=== PATIENT | female | born 1945 | race Caucasian/White ===

== ENCOUNTER 2020-12-19 07:54 | Outpatient (REF) | payer MEDICARE, OTHER, SELFPAY ==
[2020-12-19 11:16] LABS: Glucose Urine UA NEG (NEG); Leukocyte Esterase Urine 1+ (NEG); Nitrite Urine NEG (NEG); Specific Gravity - Urine 1.015 (1.005-1.025); Urine Blood NEG (NEG); Urine Ketones NEG (NEG); Urine Protein NEG (NEG-TRACE)
[2020-12-19 11:18] LABS: Appearance Urine HAZY; Color Urine YELLOW
[2020-12-19 11:32] LABS: Hematocrit 42.3 % (37-47); Mean Corpuscular HGB Conc 33.1 g/dl (31.0-35.0); Mean Corpuscular Hemoglobin 31.7 pg (27.0-33.0); Mean Corpuscular Volume 95.7 fL (80-98); Mean Platelet Volume 11.3 fL (9.4-12.3); Platelet Count 248 X10*3/uL (160-400); Red Blood Count 4.42 X10*6/uL (4.20-5.50); Red Cell Distribution Width 12.8 % (11.0-16.0); White Blood Count 8.5 X10*3/uL (4.8-10.8)
[2020-12-19 11:33] LABS: Bacteria Urine 1+ /LPF; Mucus Urine 1+ /LPF; RBC Urine 0 /HPF (0); Squamous Epithelial Cell Urine 1+ /LPF; WBC Urine 30-49 /HPF (0-4)
[2020-12-19 12:23] LABS: Alanine Aminotransferase 16 U/L (0-31); Albumin Level 4.3 g/dL (3.5-5.0); Alkaline Phosphatase 72 U/L (39-117); Anion Gap 17 (12-20); Aspartate Amino Transferase 23 U/L (5-31); Bilirubin Total 0.9 mg/dL (0.0-1.0); Blood Urea Nitrogen 15 mg/dL (9-16); Calcium 9.2 mg/dL (8.4-10.2); Carbon Dioxide 28 mmol/L (22-29); Chloride 100 mmol/L (96-108); Cholesterol 154 mg/dL; Estimated Glomerular Filt Rate > 60; Glucose Fasting 107 mg/dL (60-99); HDL Cholesterol 61 mg/dL; LDL Cholesterol Calculated 76 mg/dl; Potassium 3.2 mmol/L (3.3-5.1); Sodium 142 mmol/L (135-145); Total Protein 6.9 g/dL (6.5-8.0); Triglycerides 86 mg/dL
== END 2020-12-19 07:55 | disposition home or self-care (01) ==
LOC: HO.HMGCLDS 07:54
PROVIDERS: PCP Internal Medicine; Visit Provider Internal Medicine
DX: E78.5 Hyperlipidemia, unspecified (principal); I10 Essential (primary) hypertension; J44.9 Chronic obstructive pulmonary disease, unspecified
CPT/HCPCS: 36415; 80053; 80061; 81001; 84443; 85027

== ENCOUNTER 2020-12-26 07:41 | Outpatient (REF) | payer MEDICARE, OTHER, SELFPAY ==
[2020-12-26 11:59] LABS: Anion Gap 16 (12-20); Blood Urea Nitrogen 12 mg/dL (9-16); Calcium 9.2 mg/dL (8.4-10.2); Carbon Dioxide 27 mmol/L (22-29); Chloride 102 mmol/L (96-108); Estimated Glomerular Filt Rate > 60; Glucose Random 103 mg/dL (60-115); Potassium 3.4 mmol/L (3.3-5.1); Sodium 142 mmol/L (135-145)
== END 2020-12-26 07:42 | disposition home or self-care (01) ==
LOC: HO.HMGCLDS 07:41
PROVIDERS: PCP Internal Medicine; Visit Provider Internal Medicine
DX: E87.6 Hypokalemia (principal)
CPT/HCPCS: 36415; 80048

== ENCOUNTER 2021-02-27 12:10 | Outpatient (REF) | payer MEDICARE, OTHER, SELFPAY ==
[2021-02-27 15:15] LABS: Anion Gap 16 (12-20); Blood Urea Nitrogen 15 mg/dL (9-16); Calcium 9.8 mg/dL (8.4-10.2); Carbon Dioxide 29 mmol/L (22-29); Chloride 102 mmol/L (96-108); Estimated Glomerular Filt Rate > 60; Glucose Random 80 mg/dL (60-115); Magnesium 2.2 mg/dL (1.6-2.6); Potassium 3.5 mmol/L (3.3-5.1); Sodium 143 mmol/L (135-145)
== END 2021-02-27 12:11 | disposition home or self-care (01) ==
LOC: HO.HMGCLDS 12:10
PROVIDERS: PCP Internal Medicine; Visit Provider Internal Medicine
DX: E78.5 Hyperlipidemia, unspecified (principal); E87.6 Hypokalemia; I10 Essential (primary) hypertension
CPT/HCPCS: 36415; 80048; 83735

== ENCOUNTER 2021-12-18 07:25 | Outpatient (REF) | payer MEDICARE, OTHER, SELFPAY ==
[2021-12-18 11:32] LABS: Hematocrit 41.9 % (37.0-47.0); Hemoglobin 13.5 g/dl (12.0-16.0); Mean Corpuscular HGB Conc 32.2 g/dl (31.0-35.0); Mean Corpuscular Volume 96.3 fL (80.0-98.0); Mean Platelet Volume 10.9 fL (9.4-12.3); Platelet Count 223 X10*3/uL (160-400); Red Blood Count 4.35 X10*6/uL (4.20-5.50); White Blood Count 8.8 X10*3/uL (4.8-10.8)
[2021-12-18 11:46] LABS: Alanine Aminotransferase 15 U/L (0-31); Albumin Level 4.2 g/dL (3.5-5.0); Alkaline Phosphatase 72 U/L (39-117); Anion Gap 13 (12-20); Aspartate Amino Transferase 20 U/L (5-31); Bilirubin Total 0.7 mg/dL (0.0-1.0); Blood Urea Nitrogen 13 mg/dL (9-16); Calcium 9.5 mg/dL (8.4-10.2); Carbon Dioxide 28 mmol/L (22-29); Chloride 104 mmol/L (96-108); Cholesterol 164 mg/dL; Estimated Glomerular Filt Rate > 60; Glucose Fasting 93 mg/dL (60-99); HDL Cholesterol 61 mg/dL; LDL Cholesterol Calculated 89 mg/dl; Potassium 3.7 mmol/L (3.3-5.1); Sodium 141 mmol/L (135-145); Triglycerides 73 mg/dL
[2021-12-18 12:11] LABS: TSH reflex Free T4 3.85 uIU/mL (0.32-4.0)
== END 2021-12-18 07:26 | disposition home or self-care (01) ==
LOC: HO.WFDLDS 07:25
PROVIDERS: Visit Provider Internal Medicine
DX: I10 Essential (primary) hypertension (principal); E87.6 Hypokalemia; E78.5 Hyperlipidemia, unspecified
CPT/HCPCS: 36415; 80053; 80061; 84443; 85027

== ENCOUNTER 2022-04-11 11:42 | Outpatient (REF) | payer MEDICARE, OTHER, SELFPAY ==
[2022-04-11 12:12] LABS: Binax Internal Control QC Valid; Binax Now Covid-19 Ag Negative (Negative); Binax Performed by: HO.BONILM
[2022-04-15 21:06] LABS: TS Negative Control Passed; TS Panel A 2; TS Panel B 1; TS Positive Control Passed; TSpotTB Negative (Negative)
== END 2022-04-11 11:43 | disposition home or self-care (01) ==
LOC: HO.HMGCLDS 11:42
PROVIDERS: PCP Internal Medicine; Visit Provider Internal Medicine
DX: Z11.1 Encounter for screening for respiratory tuberculosis (principal); Z20.822 Contact with and (suspected) exposure to COVID-19
CPT/HCPCS: 86481; 87811; C9803

== ENCOUNTER 2023-01-20 07:58 | Outpatient (REF) | payer MEDICARE, OTHER, SELFPAY ==
[2023-01-20 08:21] LABS: MANUAL DIFF FLAG NO
[2023-01-20 09:10] LABS: Basophils Absolute Auto 0.1 X10*3/uL (0.0-0.2); Basophils Percent Auto 0.7 % (0-2); Eosinophils Absolute Auto 0.2 X10*3/uL (0.0-0.4); Eosinophils Percent Auto 2.2 % (0-4); Hematocrit 43.9 % (37.0-47.0); Hemoglobin 14.2 g/dl (12.0-16.0); Imm Gran Abs Auto 0.04 X10*3/uL (0.00-0.03); Imm Gran Pct Auto 0.5 % (0.0-0.4); Lymphocytes Absolute Auto 1.9 X10*3/uL (1.2-4.9); Lymphocytes Percent Auto 22.1 % (20-40); Mean Corpuscular HGB Conc 32.3 g/dl (31.0-35.0); Mean Corpuscular Hemoglobin 31.6 pg (27.0-33.0); Mean Corpuscular Volume 97.6 fL (80.0-98.0); Mean Platelet Volume 11.2 fL (9.4-12.3); Monocytes Absolute Auto 0.6 X10*3/uL (0.1-1.2); Monocytes Percent Auto 6.8 % (2-11); Neutrophils Absolute Auto 5.8 x10*3/uL (2.0-8.3); Neutrophils Percent Auto 67.7 % (45-73); Platelet Count 179 X10*3/uL (160-400); Red Cell Distribution Width 12.1 % (11.0-16.0); White Blood Count 8.5 X10*3/uL (4.8-10.8)
[2023-01-20 09:22] LABS: Estimated Average Glucose 108 mg/dL; Hemoglobin A1c % 5.4 %
[2023-01-20 10:00] LABS: Alanine Aminotransferase 31 U/L (0-31); Albumin Level 4.4 g/dL (3.5-5.0); Alkaline Phosphatase 67 U/L (39-117); Anion Gap 15 (12-20); Aspartate Amino Transferase 29 U/L (5-31); Bilirubin Total 0.7 mg/dL (0.0-1.0); Blood Urea Nitrogen 31 mg/dL (9-16); Calcium 9.5 mg/dL (8.4-10.2); Carbon Dioxide 26 mmol/L (22-29); Chloride 109 mmol/L (96-108); Cholesterol 162 mg/dL; Estimated Glomerular Filt Rate > 60; Glucose Fasting 92 mg/dL (60-99); HDL Cholesterol 69 mg/dL; LDL Cholesterol Calculated 81 mg/dl; Potassium 3.8 mmol/L (3.3-5.1); Sodium 146 mmol/L (135-145); Total Protein 6.9 g/dL (6.5-8.0); Triglycerides 64 mg/dL
[2023-01-20 10:16] LABS: TSH reflex Free T4 2.98 uIU/mL (0.32-4.0)
== END 2023-01-20 07:59 | disposition home or self-care (01) ==
LOC: HO.LAB 07:58
PROVIDERS: PCP Internal Medicine; Visit Provider Internal Medicine
DX: E78.5 Hyperlipidemia, unspecified (principal); E87.6 Hypokalemia; I10 Essential (primary) hypertension; J44.9 Chronic obstructive pulmonary disease, unspecified; R41.3 Other amnesia
CPT/HCPCS: 36415; 80053; 80061; 83036; 83735; 84443; 85025

== ENCOUNTER 2023-02-25 14:10 | Outpatient (REF) | payer MEDICARE, OTHER, SELFPAY ==
--- NOTE | ~2023-02-25 | MM_ITS ---
EXAMINATION: BONE DENSITOMETRY CLINICAL INDICATION: Menopause. COMPARISON: None (current study represents initial baseline exam). TECHNIQUE: Using a [employer] DXA System (software version: 13.1) manufactured by [employer], dual-energy x-ray absorptiometry was performed of the lumbar spine and left hip. The images are of good technical quality. Summary results are attached. FINDINGS: LEFT FEMUR, NECK: BMD 0.782 g/cm2, Z-score 0.3, T-score -1.8, osteopenia. LEFT FEMUR, TOTAL: BMD 0.826 g/cm2, Z-score 0.6, T-score -1.4, osteopenia. AP SPINE L1-L2 (excluding L3 and L4): The data of L1-L4 has been changed to exclude the L3 and L4 vertebral bodies, because degenerative changes at these levels may cause overestimation of lumbar spine density. BMD 0.935 g/cm2, Z-score 0.1, T-score -1.9, osteopenia. IDENTIFIED RISK FACTORS: Menopause, low calcium intake. HISTORY OF FRACTURE: None listed. MEDICATIONS: Calcium, multivitamin. MM/XR DEXA axial skeleton IMPRESSION: 1. DIAGNOSIS: Osteopenia based on the lowest T-score value of -1.9 in the lumbar spine applying World Health Organization criteria. 2. 10-YEAR FRACTURE RISK PREDICTION, FRAX: Major osteoporotic fracture (clinical spine, forearm, hip or shoulder) 12.7%. Hip fracture 3.3%. 3. Treatment Recommendations: NOF guidelines recommend consideration for treatment in postmenopausal women and men age 50 and older presenting with the following: -A hip or vertebral (clinical or morphometric) fracture. -T-score less than or equal to -2.5 at the femoral neck or spine after appropriate evaluation to exclude secondary causes. -Low bone mass at the hip or spine and a 10-year fracture probability by FRAX of greater than or equal to 3% for hip fracture or greater than or equal to 20% for major osteoporotic fracture based on the [place] adapted WHO algorithm. 4. Other Recommendations: All treatment decisions require clinical judgment and consideration of individual patient factors, including patient preferences, comorbidities, previous drug use, risk factors not captured in the FRAX model (e.g. frailty, falls, vitamin D deficiency, increased bone turnover, interval significant decline in bone density) and possible under or overestimation of fracture risk by FRAX. Additional medical evaluation for secondary cause of low bone mineral density may be appropriate. FUTURE SCAN RECOMMENDATION: People with diagnosed cases of osteoporosis or at high risk for fracture should have regular bone mineral density tests. For patients eligible for Medicare, routine testing is allowed once every 2 years. The testing frequency can be increased to one year for patients who have rapidly progressing disease, those who are receiving or discontinuing medical therapy to restore bone mass, or have additional risk factors.
== END 2023-02-25 14:11 | disposition home or self-care (01) ==
LOC: HO.MAMMO 14:10
PROVIDERS: PCP Internal Medicine; Visit Provider Internal Medicine
DX: Z13.820 Encounter for screening for osteoporosis (principal); Z78.0 Asymptomatic menopausal state
CPT/HCPCS: 77080

== ENCOUNTER 2023-05-13 12:32 | Outpatient (AMB) | payer MEDICARE, OTHER, SELFPAY ==
[2023-05-13 12:33] VITALS: BP 122/74; PULSE 62; O2SAT 98; BMI 24.9
--- NOTE | 2023-05-13 12:33 | MHC.OFFVIS ---
Intake Intake Visit Reasons: Hypertension Allergies lisinopril [LISINOPRIL] Allergy (Unknown, Verified 01/21/23 13:41) angioedema PFSH Medical History Annual physical exam Anxiety Chest pain Chronic GERD Chronic vertigo COPD with asthma Dizziness HTN (hypertension) Hyperlipemia Hypokalemia Memory deficit AYAKA on CPAP Surgical History H/O colonoscopy History of breast surgery History of tonsillectomy Family History Father Emphysema, unspecified Mother Heart disease Son No problems noted. Son No problems noted. Son No problems noted. Daughter No problems noted. Social History Housing: House Alcohol intake: never Patient Tobacco Use Status: Never used Tobacco e-Cigarette/Vaping Use: Never Used Second Hand Smoke Exposure: No Current occupational status: retired Current occupational exposures/hazards: No Cognitive needs: No Hearing needs: No Vision needs: Yes Coding
--- NOTE | 2023-05-13 12:33 | MHC.PC.OV ---
Vital Signs 05/13/23 12:33 Height 5 ft 1 in Weight 132 lb BMI 24.9 BP 122/74 Blood Pressure Location Rt brachial Position Sitting Pulse 62 Pulse Source Pulse Oximeter Pulse Oximetry (%) 98 Oxygen Delivery Method Room Air Intake Visit Reasons: Hypertension Intake Note: Pt is here today for a follow up visit on HTN. Pt's son states that Donepezil was increaed from 10 mg to 23 mg for memory but she has been getting dizzy. Pt will need referral for home PT. Allergies lisinopril [LISINOPRIL] Allergy (Unknown, Verified 05/13/23 12:36) angioedema Medication List - Last Reconciled 05/13/23 by Saumya Ruiz MD atorvastatin 40 mg PO DAILY bupropion HCl 300 mg PO QAM cholecalciferol (vitamin D3) 25 mcg PO DAILY donepezil 23 mg PO BEDTIME metoprolol succinate ER 50 mg PO DAILY montelukast 10 mg PO DAILY multivitamin 1 tab PO DAILY pantoprazole 40 mg PO DAILY potassium chloride ER 10 mEq PO DAILY triamterene-hydrochlorothiazid 37.5-25 mg 0.5 tabs PO QAM umeclidinium 62.5 mcg/actuation (Incruse Ellipta) 1 inh inhalation BEDTIME Tobacco use date assessed: 05/13/23 Fall risk assessment: 1 Fall in past year Last assessed Fall Risk: 05/13/23 Dental Screening Dental Screen Date: 05/13/23 Did you have a dental visit in the last 12 months?: Yes Did you have a dental problem in the last 6 months where you did not have access to dental care?: No Was dental information given to patient?: Patient has dentist HPI Hypertension HPI Details Pt presents for f/u of ER visit for mechanical fall. Patient tripped over and fell on her face. She sustained fracture of the nose. Patient has been having difficulty walking feeling off balance and shaky special when turning around. Patient lives in assisted living but has not been able to exercise regularly except walking down the [place] 3 times a day for meals. Patient reports feeling dizzy' on and off. She had evaluation by neurologist without significant abnormalities other than peripheral neuropathy. HTN, hyperlipid, COPD, are stable on meds. Patient noticed feeling more jittery since increasing dose of donepezil but there is no improvement in memory deficit. [facility] Medical History Annual physical exam Dizziness Hypokalemia Memory deficit Hyperlipemia Chest pain Chronic vertigo AYAKA on CPAP Anxiety COPD with asthma Chronic GERD HTN (hypertension) Surgical History H/O colonoscopy History of breast surgery History of tonsillectomy Family History Father Emphysema, unspecified Mother Heart disease Son No problems noted. Son No problems noted. Son No problems noted. Daughter No problems noted. Social History Housing: House Alcohol intake: never Patient Tobacco Use Status: Never used Tobacco e-Cigarette/Vaping Use: Never Used Second Hand Smoke Exposure: No Current occupational status: retired Current occupational exposures/hazards: No Cognitive needs: No Hearing needs: No Vision needs: Yes Questionnaire Thrive Questionnaire Date Thrive assessed: 12/19/22 BETH-7 AMB Questionnaire BETH-7 Date BETH - 7 assessed: 12/19/22 Source: Developed by Drs. Venkat Ramirez, Deborah Carreon, José Miguel Coles and colleagues, with an educational marina from [employer]. Review of Systems Const All systems reviewed & are unremarkable except as noted in HPI and below Reports no additional complaints Eyes Reports no additional complaints ENT Reports no additional complaints Card Reports no additional complaints Resp Reports no additional complaints GI Reports no additional complaints Reports no additional complaints Physical exam (Primary Care) Vital Signs: Last Vital Signs Pulse 62 05/13/23 12:33 BP 122/74 05/13/23 12:33 Pulse Ox 98 05/13/23 12:33 Oxygen Delivery Method Room Air 05/13/23 12:33 BMI result Body Mass Index 24.9 Tobacco/Smoking Status: Tobacco use Status Tobacco use date assessed 05/13/23 05/13/23 12:47 Patient Tobacco Use Status Never used Tobacco 05/13/23 12:47 e-Cigarette/Vaping Use Never Used 05/13/23 12:47 Thrive Assessment: Date of Thrive Assessment Date Thrive assessed 12/19/22 05/13/23 12:47 Const General: no acute distress HENMT Head: Yes normal to inspection Ears: hearing grossly normal bilaterally Face and sinus: Yes normal facial exam Throat: Yes posterior oropharynx normal Eyes General: appearance normal, both eyes and all related structures Neck Neck: Yes supple Resp Effort & Inspection: normal respiratory effort Auscultation: clear to auscultation bilaterally Cardio Rhythm: regular rhythm Heart sounds: S1 normal heart sound present and S2 normal heart sound present GI Palpation (GI): Soft to palpation Neuro Other: Unsteady gait and lower extremity strength 4/5 bilaterally, deep tendon reflexes 1+ bilaterally, decreased sensation in both feet General: CN's II-XI intact bilaterally Gait exam (Neuro): Ataxic gait present Romberg Test: Negative Extrem Other: Straight leg rising 90 degrees bilaterally both hip with full range of motion General: Yes no clubbing, cyanosis or edema Assessment and Plan Assessment & Plan (1) Poor balance: Code(s): R26.89 - Other abnormalities of gait and mobility Plan: Patient will be referred for home PT in assisted living. She does not drive and cannot get into the outpatient physical therapy. (2) COPD with asthma: Comment: Dr. Aaron Code(s): J44.9 - Chronic obstructive pulmonary disease, unspecified Plan: Continue current treatment (3) HTN (hypertension): Code(s): I10 - Essential (primary) hypertension Plan: Continue medications (4) Hyperlipemia: Code(s): E78.5 - Hyperlipidemia, unspecified Plan: Continue statin Orders: Orders Comprehensive [place]. Panel Fast 3 Months E78.5 - Hyperlipidemia, unspecified, E87.6 - Hypokalemia, I10 - Essential (primary) hypertension, R26.89 - Other abnormalities of gait and mobility, R41.3 - Other amnesia Complete Blood Count Auto Diff 3 Months E78.5 - Hyperlipidemia, unspecified, E87.6 - Hypokalemia, I10 - Essential (primary) hypertension, R26.89 - Other abnormalities of gait and mobility, R41.3 - Other amnesia Lipid Panel 3 Months E78.5 - Hyperlipidemia, unspecified, E87.6 - Hypokalemia, I10 - Essential (primary) hypertension, R26.89 - Other abnormalities of gait and mobility, R41.3 - Other amnesia TSH reflex Free T4 3 Months E78.5 - Hyperlipidemia, unspecified, E87.6 - Hypokalemia, I10 - Essential (primary) hypertension, R26.89 - Other abnormalities of gait and mobility, R41.3 - Other amnesia PT Evaluation and Treatment Today R26.89 - Other abnormalities of gait and mobility Medications: New donepezil 10 mg PO DAILY 90 tabs 2RF Discontinued donepezil Discontinued Reason: Doctor's Order 23 mg PO BEDTIME 90 tabs 1RF Coding Level of Care Code Est Pt Level 4 (21042) Diagnoses Poor balance R26.89 COPD with asthma J44.9 HTN (hypertension) I10 Hyperlipemia E78.5
== END 2023-05-13 13:46 | disposition home or self-care (01) ==
PROVIDERS: Visit Provider Internal Medicine
DX: R26.89 Other abnormalities of gait and mobility (principal); J44.9 Chronic obstructive pulmonary disease, unspecified; I10 Essential (primary) hypertension; E78.5 Hyperlipidemia, unspecified
CPT/HCPCS: 99214

== ENCOUNTER 2024-05-26 08:29 | Outpatient (REF) | payer MEDICARE, OTHER, SELFPAY ==
[2024-05-26 11:50] LABS: MANUAL DIFF FLAG NO
[2024-05-26 12:02] LABS: Basophils Absolute Auto 0.1 X10*3/uL (0.0-0.2); Basophils Percent Auto 0.6 % (0-2); Eosinophils Absolute Auto 0.1 X10*3/uL (0.0-0.4); Eosinophils Percent Auto 1.7 % (0-4); Hematocrit 43.6 % (37.0-47.0); Imm Gran Abs Auto 0.02 X10*3/uL (0.00-0.03); Imm Gran Pct Auto 0.2 % (0.0-0.4); Lymphocytes Absolute Auto 1.9 X10*3/uL (1.2-4.9); Lymphocytes Percent Auto 23.4 % (20-40); Mean Corpuscular HGB Conc 32.1 g/dl (31.0-35.0); Mean Corpuscular Volume 99.8 fL (80.0-98.0); Mean Platelet Volume 11.6 fL (9.4-12.3); Monocytes Absolute Auto 0.6 X10*3/uL (0.1-1.2); Monocytes Percent Auto 6.8 % (2-11); Neutrophils Absolute Auto 5.4 x10*3/uL (2.0-8.3); Neutrophils Percent Auto 67.3 % (45-73); Platelet Count 185 X10*3/uL (160-400); Red Blood Count 4.37 X10*6/uL (4.20-5.50); Red Cell Distribution Width 12.1 % (11.0-16.0)
[2024-05-26 12:19] LABS: Alanine Aminotransferase 27 U/L (0-31); Albumin Level 4.1 g/dL (3.5-5.0); Alkaline Phosphatase 70 U/L (39-117); Anion Gap 12 (12-20); Aspartate Amino Transferase 27 U/L (5-31); Bilirubin Total 0.5 mg/dL (0.0-1.0); Blood Urea Nitrogen 23 mg/dL (9-16); Calcium 9.7 mg/dL (8.4-10.2); Carbon Dioxide 27 mmol/L (22-29); Chloride 106 mmol/L (96-108); Cholesterol 152 mg/dL (<200); Estimated Glomerular Filt Rate > 60; Glucose Fasting 99 mg/dL (60-99); HDL Cholesterol 69 mg/dL (>40); LDL Cholesterol Calculated 69 mg/dL (<100); Potassium 3.9 mmol/L (3.3-5.1); Sodium 141 mmol/L (135-145); Triglycerides 72 mg/dL (<150)
[2024-05-26 12:38] LABS: TSH reflex Free T4 3.13 uIU/mL (0.32-4.0)
== END 2024-05-26 08:30 | disposition home or self-care (01) ==
LOC: HO.WFDLDS 08:29
PROVIDERS: Visit Provider Internal Medicine
DX: R41.3 Other amnesia (principal); E78.5 Hyperlipidemia, unspecified; I10 Essential (primary) hypertension; E87.6 Hypokalemia; R26.89 Other abnormalities of gait and mobility
CPT/HCPCS: 36415; 80053; 80061; 84443; 85025

== ENCOUNTER 2024-05-27 10:21 | Outpatient (AMB) | payer MEDICARE, OTHER, SELFPAY ==
[2024-05-27 10:23] VITALS: BP 120/78; PULSE 61; O2SAT 97; BMI 26.3
--- NOTE | 2024-05-27 10:23 | MHC.PC.OV ---
Vital Signs 05/27/24 10:23 Height 5 ft 1 in Weight 139 lb BMI 26.3 BP 120/78 Blood Pressure Location Lt brachial Position Sitting Pulse 61 Pulse Source Pulse Oximeter Pulse Oximetry (%) 97 Oxygen Delivery Method Room Air Intake Visit Reasons: Followup meds Intake Note: Pt is here today for a follow up visit. Pt's son states that pt would benefit from PT. Allergies lisinopril [LISINOPRIL] Allergy (Unknown, Verified 05/27/24 10:25) angioedema Medication List - Last Reconciled 05/27/24 by Saumya Ruiz MD atorvastatin 40 mg PO DAILY bupropion HCl XL 300 mg PO QAM cholecalciferol (vitamin D3) 25 mcg PO DAILY donepezil 10 mg PO DAILY metoprolol succinate ER 50 mg PO DAILY montelukast 10 mg PO DAILY multivitamin 1 tab PO DAILY pantoprazole 40 mg PO DAILY potassium chloride ER 10 mEq PO DAILY triamterene-hydrochlorothiazid 37.5-25 mg 0.5 tabs PO QAM umeclidinium 62.5 mcg/actuation (Incruse Ellipta) 1 inh inhalation BEDTIME Tobacco use date assessed: 05/27/24 Fall risk assessment: 2 + Falls in past year Last assessed Fall Risk: 05/27/24 Dental Screening Dental Screen Date: 05/27/24 Did you have a dental visit in the last 12 months?: Yes Did you have a dental problem in the last 6 months where you did not have access to dental care?: No Was dental information given to patient?: Patient has dentist HPI Followup meds HPI Details Patient presents for the follow-up for hypertension hyperlipidemia chronic GERD chronic anxiety and dementia. Patient's son's report that she has not being physically active having difficulty with the balance and slight tremor when holding utensils. She lives with her in assisted living facility and becoming more forgetful. [facility] Medical History (Updated 05/27/24 @ 12:54 by Saumya Ruiz MD) Annual physical exam Dizziness Hypokalemia Memory deficit Hyperlipemia Chest pain Chronic vertigo AYAKA on CPAP Anxiety COPD with asthma Chronic GERD HTN (hypertension) Surgical History H/O colonoscopy History of breast surgery History of tonsillectomy Family History Father Emphysema, unspecified Mother Heart disease Son No problems noted. Son No problems noted. Son No problems noted. Daughter No problems noted. Social History Housing: House Alcohol intake: never Patient Tobacco Use Status: Never used Tobacco e-Cigarette/Vaping Use: Never Used Second Hand Smoke Exposure: No service: No Current occupational status: retired Current occupational exposures/hazards: No Cognitive needs: No Hearing needs: No Vision needs: Yes Questionnaire PHQ-9 Over the last 2 weeks, how often have you been bothered by any of the following problems? 1. Little interest or pleasure in doing things: not at all 2. Feeling down, depressed, or hopeless: several days 3. Trouble falling or staying asleep, or sleeping too much: nearly every day 4. Feeling tired or having little energy: more than half the days 5. Poor appetite or overeating: not at all 6. Feeling bad about yourself - or that you are a failure or have let yourself or your family down: not at all 7. Trouble concentrating on things, such as reading the newspaper or watching television: not at all 8. Moving or speaking so slowly that other people could have noticed. Or the opposite - being so fidgety or restless that you have been moving around a lot more than usual: not at all 9. Thoughts that you would be better off or of hurting yourself in some way: not at all Total score: 6 Depression Screening Interpretation: Negative Depression Screening Done: Yes 52604 - PHQ-9 Billing: Yes Source: Developed by Drs. Venkat Ramirez, Deborah Carreon, José Miguel Coles and colleagues, with an educational marina from [employer]. Thrive Questionnaire Date Thrive assessed: 05/27/24 I am a: Parent/Caregiver What is your living situation today?: I have a steady place to live Within the past 12 months, did the food you bought not last and you didn't have the money to get more?: Never true Within the past 12 months, did you worry whether your food would run out before you got money to buy more?: Never true Do you have trouble paying for medicines?: No Do you have trouble getting transportation to medical appointments?: No Do you have trouble paying your heating and electricity bill?: No Do you have trouble taking care of your child, family member or friend?: No Do you have trouble with day-to-day activities such as bathing, preparing meals, shopping, managing finances, etc.?: No Are you currently unemployed and looking for a job?: No Are you interested in more education?: No Please select the resources that you would like help with: None Currently or been in a relationship where the following occur: No concerns reported THRIVE Score: 0 AUDIT C Alcohol Use Questionnaire (AUDIT-C) 1. How often do you have a drink containing alcohol?: Never 3. How often do you have six or more drinks on one occasion?: Never Total Score: 0 BETH-7 AMB Questionnaire BETH-7 Date BETH - 7 assessed: 05/27/24 Feeling nervous, anxious, or on edge: 0 = Not at all Not being able to stop or control worryin = Not at all Worrying too much about different things: 0 = Not at all Trouble relaxin = Several days Being so restless that it is hard to sit still: 1 = Several days Becoming easily annoyed or irritable: 2 = More than half the days Feeling afraid as if something awful might happen: 2 = More than half the days Total BETH-7 score (0-4 normal; 5-9 mild; 10-14 moderate; 15-21 severe): 6 Source: Developed by Drs. Venkat Ramirez, Deborah Carreon, José Miguel Coles and colleagues, with an educational marina from [employer]. BETH-7 Assessment Billing BETH-7 Assessment Tool: BETH-7 Assessment 28137 Review of Systems Const All systems reviewed & are unremarkable except as noted in HPI and below ENT Reports no additional complaints Card Reports no additional complaints Resp Reports no additional complaints GI Reports no additional complaints Reports no additional complaints Physical exam (Primary Care) Vital Signs: Last Vital Signs Pulse 61 05/27/24 10:23 BP 120/78 05/27/24 10:23 Pulse Ox 97 05/27/24 10:23 Oxygen Delivery Method Room Air 05/27/24 10:23 BMI result Body Mass Index 26.3 Tobacco/Smoking Status: Tobacco use Status Tobacco use date assessed 05/27/24 05/27/24 10:30 Patient Tobacco Use Status Never used Tobacco 05/27/24 10:30 e-Cigarette/Vaping Use Never Used 05/27/24 10:28 PHQ-9: PHQ-9 Score PHQ-9: Total score 6 05/27/24 10:30 Depression Screening Interpretation: Negative Thrive Assessment: Date of Thrive Assessment Date Thrive assessed 05/27/24 05/27/24 10:30 Currently or been in a relationship where the following occur: No concerns reported Const General: no acute distress HENMT Head: Yes normal to inspection Ears: hearing grossly normal bilaterally Face and sinus: Yes normal facial exam Throat: Yes posterior oropharynx normal Neck Neck: Yes no lymphadenopathy and Yes supple Resp Effort & Inspection: normal respiratory effort Auscultation: clear to auscultation bilaterally Cardio Rhythm: regular rhythm Heart sounds: S1 normal heart sound present and S2 normal heart sound present GI Inspection: Yes normal to inspection Palpation (GI): Soft to palpation Percussion: Yes normal to percussion Auscultation: normal bowel sounds Neuro General: CN's II-XI intact bilaterally Gait exam (Neuro): Staggering gait present Motor exam (neuro): 5/5 motor strength present throughout, Pronator motor function not present, Normal motor muscle tone present throughout and Motor abnormalities not present Coordination: [id number] test normal Romberg Test: Negative Extrem General: Yes no clubbing, cyanosis or edema Assessment and Plan Assessment & Plan (1) Poor balance: Code(s): R26.89 - Other abnormalities of gait and mobility Plan: Referred to physical therapy at [facility] (2) Dysuria: Code(s): R30.0 - Dysuria Plan: For increased urinary frequency check urine culture (3) COPD with asthma: Comment: Dr. Aaron, mild not using an inhaler Code(s): J44.9 - Chronic obstructive pulmonary disease, unspecified Plan: Asymptomatic not using inhaler, continue montelukast (4) HTN (hypertension): Code(s): I10 - Essential (primary) hypertension Plan: Continue current medications (5) Hyperlipemia: Code(s): E78.5 - Hyperlipidemia, unspecified Plan: Continue statin (6) Memory deficit: Code(s): R41.3 - Other amnesia Plan: Continue donepezil (7) Anxiety: Code(s): F41.9 - Anxiety disorder, unspecified Plan: Continue bupropion Orders: Orders PT Evaluation and Treatment Today R26.89 - Other abnormalities of gait and mobility Urine Culture Today R30.0 - Dysuria Referrals Podiatry Referral R26.89 - Other abnormalities of gait and mobility, R30.0 - Dysuria Medications: Discontinued umeclidinium 62.5 mcg/actuation (Incruse Ellipta) Discontinued Reason: Doctor's Order 1 inh inhalation BEDTIME 90 ea 3RF Coding Level of Care Code Est Pt Level 4 (21400) Diagnoses Poor balance R26.89 Dysuria R30.0 COPD with asthma J44.9 HTN (hypertension) I10 Hyperlipemia E78.5 Memory deficit R41.3 Anxiety F41.9 Additional Codes BETH-7 Assessment Billing - BETH-7 Assessment Tool: BETH-7 Assessment [id number] ([id number])
== END 2024-05-27 12:55 | disposition home or self-care (01) ==
PROVIDERS: PCP Internal Medicine; Visit Provider Internal Medicine
DX: R26.89 Other abnormalities of gait and mobility (principal); R30.0 Dysuria; J44.9 Chronic obstructive pulmonary disease, unspecified; I10 Essential (primary) hypertension; E78.5 Hyperlipidemia, unspecified; R41.3 Other amnesia; F41.9 Anxiety disorder, unspecified

== ENCOUNTER → 2024-05-27 10:21 | Outpatient (BNVA) | payer MEDICARE, OTHER, SELFPAY | PROVIDERS: PCP Internal Medicine; Visit Provider Internal Medicine ==

== ENCOUNTER 2024-05-27 11:22 | Outpatient (REF) | payer MEDICARE, OTHER, SELFPAY | END 2024-05-27 11:23 | disposition home or self-care (01) | LOC: HO.HMGCLDS 11:22 | PROVIDERS: PCP Internal Medicine; Visit Provider Internal Medicine | DX: I10 Essential (primary) hypertension (principal); E78.5 Hyperlipidemia, unspecified; K21.9 Gastro-esophageal reflux disease without esophagitis; F41.9 Anxiety disorder, unspecified; F03.90 Unspecified dementia, unspecified severity, without behavioral disturbance, psychotic disturbance, mood disturbance, and anxiety; R26.89 Other abnormalities of gait and mobility; R30.0 Dysuria; J44.9 Chronic obstructive pulmonary disease, unspecified; R41.3 Other amnesia; Z79.899 Other long term (current) drug therapy | CPT/HCPCS: 96127; 99212 ==

== ENCOUNTER 2024-09-05 14:36 | Outpatient (REF) | payer MEDICARE, OTHER, SELFPAY ==
[2024-09-05 14:53] LABS: Appearance Urine Clear; Color Urine Yellow; Glucose Urine UA Negative (Negative); Leukocyte Esterase Urine Large (3+) (Negative); Nitrite Urine Positive (Negative); PH 6.5 (5.0-9.0); Specific Gravity - Urine 1.015 (1.005-1.025); UMIC TRIGGER UA YES; Urine Blood Negative (Negative); Urine Ketones Negative (Negative); Urine Protein Negative (Neg-Trace)
[2024-09-05 14:56] LABS: Bacteria Urine 2+ (None Seen); Hyaline Casts Urine 0-2 /LPF (0-2); RBC Urine 0-2 /HPF (0-2); Squamous Epithelial Cell Urine 0-2 /HPF (0-2); WBC Urine >50 /HPF (0-5)
== END 2024-09-05 14:37 | disposition home or self-care (01) ==
LOC: HO.LNP 14:36
PROVIDERS: Visit Provider Internal Medicine
DX: R30.0 Dysuria (principal)
CPT/HCPCS: 81001; 87086; 87088; 87186